=== PATIENT | female | born 1965 | race Caucasian/White ===

== ENCOUNTER 2020-09-19 06:07 | Day surgery (SDC) | payer BC ==
[~2020-09-19] VITALS: Ht 167.6 cm; Wt 114.3 kg
[2020-09-19 07:13] LABS: INR 1.12 (0.85-1.17); PROTIME 13.3 SECONDS (11.6-15.0)
[2020-09-19 07:25] LABS: ANION GAP 14.8 mmol/L (8-16); CALCIUM 9.9 mg/dL (8.5-10.1); CARBON DIOXIDE 29.7 mmol/L (21.0-32.0); CREATININE - SERUM 5.2 mg/dL (0.6-1.3); POTASSIUM - SERUM 3.5 mmol/L (3.5-5.1)
[2020-09-19 07:46] LABS: BASOPHILS 0.4 % (0-2); EOSINOPHILS 4.3 % (0-7); HEMATOCRIT 33.2 % (36.0-48.0); HEMOGLOBIN 10.5 g/dL (12-16); IMMATURE GRANULOCYTES 0.2 % (0-5); LYMPHOCYTE ABS# 1.93 10x3/uL (1.18-3.74); LYMPHOCYTES 21.3 % (15-50); MCH 28.6 pg (26.0-34.0); MCHC 31.6 g/dL (31.0-37.0); MCV 90.5 fL (80.0-100.0); MEAN PLATELET VOLUME 10.3 fL (7.4-10.4); MONOCYTES 6.5 % (2-11); NEUTROPHIL ABS# 6.11 10x3/uL (1.56-6.13); NEUTROPHILS 67.3 % (40-80); PLATELET COUNT 300 10x3/uL (130-400); RBC 3.67 10x6/uL (4.00-5.40); RDW 14.2 % (11.5-14.5); WBC 9.1 10x3/uL (4.8-10.8)
[2020-09-19] MEDS ORDERED: VERAPAMIL HCL40 MG PO (07:56)
[2020-09-19] MEDS ORDERED: PRAVACHOL40 MG PO (07:57)
[2020-09-19] MEDS ORDERED: HCTZ25 MG PO (07:58)
[2020-09-19] MEDS ORDERED: SYNTHROID125 MCG PO (07:58)
[2020-09-19] MEDS ORDERED: LEVEMIR FL100 UNIT/1 SC ×2 (07:59→08:00)
[2020-09-19] MEDS ORDERED: COREG25 MG PO (08:00)
[2020-09-19] MEDS ORDERED: NORVASC10 MG PO (08:01)
[2020-09-19] MEDS ORDERED: LASIX80 MG PO (08:01)
[2020-09-19] MEDS ORDERED: ZYLOPRIM100 MG PO (08:02)
[2020-09-19] MEDS ORDERED: NOVOLOG100 UNIT/1 SC (08:02)
[2020-09-19 08:23] VITALS: Ht 167.6 cm; Wt 114.3 kg
[2020-09-19] MEDS ORDERED: HYDROCODON-ACE1 EAC7 PO (10:51)
--- NOTE | 2020-09-19 12:58 | NUR ---
1255 IV REMOVED. PRESSURE HELD AND INSTRUCTION GIVEN. PT NOT READY TO GO HOME BECAUSE PTS RIDE HAD A LOW BS.
--- NOTE | 2020-09-23 11:01 | OP ---
PATIENT NAME: NAYELI CASON MEDICAL RECORD: [id number] :69 LOCATION:[facility] ADMISSION DATE: SURGEON: MEHRAN FUENTES MD DATE OF OPERATION: 09/19/[address] Erick Piedra PREOPERATIVE DIAGNOSIS: Chronic kidney disease V. POSTOPERATIVE DIAGNOSIS: Chronic kidney disease V. OPERATION PERFORMED: Creation of a left brachial artery to medium basilic vein, Stephanie type AV fistula with plans for return to the operating room in a few weeks for revision to a translocated basilic fistula. SURGEON: Mehran Fuentes MD ANESTHESIA: Regional nerve block and general per AIRBRUSH PAINTER PREOPERATIVE NOTE: Ms. Cason is an obese, pleasant 54-year-old white female patient with chronic kidney disease stage V, who will need dialysis probably within the next few months. She was referred to me for creation of an arteriovenous fistula. Preoperative vein mapping indicated a lack of satisfactory veins in her forearms. She is right handed. On the left, the basilic vein in the upper arm was dominant. She was brought to the operating room at this time with plans to create either a brachiobasilic or brachiocephalic AV fistula in the left arm. DESCRIPTION OF PROCEDURE: Under anesthesia in supine position, the patient was prepped and draped in sterile manner. A Arvin drain was used as a proximal venous tourniquet and nitroglycerin was applied to the intact skin of the arm and forearm. Ultrasound demonstrated a suitably sized basilic vein, which joined to the median cephalic vein just over the distal brachial artery in close proximity to the artery. The cephalic vein just above the antecubital space looked suitable for fistula creation, but just above that it divided into several different branches and these were rather small going proximally and I elected to go ahead with the basilic Stephanie fistula with plans for return to the operating room and delayed second stage revision to a true translocated fistula. I made an incision on the medial aspect of the antecubital space transversely oriented and exposed the basilic vein and the brachial artery. The brachial artery and its bifurcation branches were controlled with Silastic loops. The ulnar brachial vein bled easily. It was eventually necessary to ligate and divide it. The median basilic vein was cleared of surrounding tissues. Distally, it was ligated with 3-0 Vicryl. It was then transected and bevelled. It was flushed with heparinized saline and an atraumatic vascular clamp used on it at the upper limit of the surgical wound. The artery was opened for about 5 mm. It was flushed proximally and distally with heparinized saline and the anastomosis carried out end of vein to side of artery with continuous running 7-0 Prolene. When completed and the occluding surgical loops and clamps were released, excellent flow developed immediately within the new fistula with a strong palpable thrill and pulsation and there was continuous pulsatile Doppler flow within it. There was maintenance of pulsatile high resistance flow in the brachial artery at the wrist. The ulnar artery maintained a pulsatile flow, but it was much diminished with the AV fistula open then when I closed it. The OPERATIVE REPORT [id number] NAYELI CASON palmar arch was intact with good pulsatile flow by Doppler. The wound was then closed with inverted 3-0 Vicryl sutures and the skin was closed with running 4-0 Stratafix and Dermabond glue and dressed with Maxorb, AG, Tegaderm, Cavilon skin prep. The patient was awakened from her anesthetic and taken to the recovery room. Blood loss during the operation was about 5 mL, none was replaced. Sponges, instruments, and needles were accounted for. No drain was used and no surgical specimen submitted for histopathology. The patient will return to see me in my office in approximately 7 days. She is given a prescription for 10 tablets of Dos Rios 5/325. She can take one p.o. q.4 hours p.r.n. pain. She will continue her home medications, diet, and activities. She will wear a sling for the rest of today and this evening while her regional nerve block gradually wears off. She is to remove the sling after tonight and then use her arm as tolerated. TRANSINT:[id number] Voice Confirmation ID: [id number] DOCUMENT ID: [id number] MEHRAN FUENTES MD at 1101 CC: [id number] DICTATION DATE: 09/19/201107 CD MANUFACTURING SUPERVISOR: 09/19/202151 [facility] 09/19/20 [facility] [address] [place] [address]
== END 2020-09-19 13:55 | disposition home or self-care (01) ==
LOC: D.OPS 06:07
PROVIDERS: ATTEND Surgery
DX: N18.5 Chronic kidney disease, stage 5 (principal); I10 Essential (primary) hypertension

== ENCOUNTER 2020-10-10 05:51 | Day surgery (SDC) | payer BC, OTHER ==
[~2020-10-10] VITALS: Ht 167.6 cm; Wt 117.5 kg
[~2020-10-10 05:51] MED LIST: COREG25 MG PO; HCTZ25 MG PO; HYDROCODON-ACE1 EAC7 PO; LASIX80 MG PO; LEVEMIR FL100 UNIT/1 SC; NORVASC10 MG PO; NOVOLOG100 UNIT/1 SC; PRAVACHOL40 MG PO; SYNTHROID125 MCG PO; VERAPAMIL HCL40 MG PO; ZYLOPRIM100 MG PO
[2020-10-10 06:30] LABS: BASOPHILS 0.4 % (0-2); EOSINOPHILS 3.9 % (0-7); HEMATOCRIT 32.3 % (36.0-48.0); HEMOGLOBIN 10.1 g/dL (12-16); IMMATURE GRANULOCYTES 0.1 % (0-5); LYMPHOCYTE ABS# 2.52 10x3/uL (1.18-3.74); LYMPHOCYTES 27.9 % (15-50); MCH 28.8 pg (26.0-34.0); MCHC 31.3 g/dL (31.0-37.0); MEAN PLATELET VOLUME 10.3 fL (7.4-10.4); MONOCYTES 5.8 % (2-11); NEUTROPHIL ABS# 5.58 10x3/uL (1.56-6.13); NEUTROPHILS 61.9 % (40-80); PLATELET COUNT 280 10x3/uL (130-400); RBC 3.51 10x6/uL (4.00-5.40); RDW 14.8 % (11.5-14.5)
[2020-10-10 06:46] LABS: CALCIUM 9.1 mg/dL (8.5-10.1); CARBON DIOXIDE 29.1 mmol/L (21.0-32.0); CREATININE - SERUM 5.3 mg/dL (0.6-1.3); INR 1.13 (0.85-1.17); PROTIME 13.5 SECONDS (11.6-15.0)
[2020-10-10 07:00] LABS: ANION GAP 13.9 mmol/L (8-16)
[2020-10-10 08:13] VITALS: Ht 167.6 cm; Wt 117.5 kg
[2020-10-10 08:37] LABS: HCG URINE NEGATIVE (NEGATIVE)
--- NOTE | 2020-10-10 12:45 | NUR ---
1245 OXYGEN LEVEL DOWN TO 89% AFTER DC OF SFM. BNC 2L/MIN STARTED. O2 SAT 92% AFTER STARTING BNC. ENCOURAGING PT TO TAKE DEEP BREATHS. HOB ELEVATED.
--- NOTE | 2020-10-10 14:29 | NUR ---
1330 IV DC'D. CATHETER TIP INTACT. NO BLEEDING AT SITE. COBAN DRESSING APPLIED. 1345 PT VOICES UNDERSTANDING OF DISCHARGE INSTRUCTIONS THAT WERE REVIEWED WITH HER.
--- NOTE | 2020-10-28 18:26 | OP ---
PATIENT NAME: NAYELI CASON MEDICAL RECORD: [id number] :69 LOCATION:[facility] ADMISSION DATE: SURGEON: MEHRAN FUENTES MD DATE OF OPERATION: 10/10/2020 She was referred by Dr. Piedra. SURGEON: Mehran Fuentes MD. ANESTHESIA: LATIN PROFESSOR, regional nerve block and TIVA. PROCEDURE PERFORMED: Upgradation of a brachial translocated basilic vein AV fistula. OPERATIVE FINDINGS: Fragile fatty tissues and nicely dilated large basilic vein. PREOPERATIVE DIAGNOSIS: End-stage renal disease and dependence on hemodialysis. POSTOPERATIVE DIAGNOSIS: End-stage renal disease and dependence on hemodialysis. PREOPERATIVE NOTE: This 54-year-old female underwent creation of a Stephanie type brachiobasilic AV fistula back on 09/19. She has returned to the operating room now that the basilic vein has dilated. I plan to create a brachial artery to translocate the basilic fistula. DESCRIPTION OF PROCEDURE: Under anesthesia, the patient was placed in supine position, prepped and draped in a sterile manner. I examined her first with ultrasound. I then went ahead with the planned procedure. I made a long incision from axilla to the antecubital space and fully mobilized the basilic vein. The basilic vein was ligated very near the arterial anastomosis in the antecubital space. The vein was then flushed with heparinized saline and treated with topical papaverine and treated with additional heparinized saline solution and then clamped. I exposed the brachial artery above the level of the previous arterial anastomosis and that artery was controlled with Silastic loops and treated with topical papaverine. I then placed the vein graft in a very superficial subcutaneous tunnel in an arching or rainbow type configuration and brought it back down to the artery. The vein was inflated with saline and noted not to be kinked or twisted. The vein was then anastomosed end-to-side to the artery with running 6-0 Prolene. The artery was flushed with heparinized saline as soon as it was opened. With completion of that anastomosis and release of the occluding clamps and loops, tremendous excellent flow developed immediately in the new fistula and suture line was hemostatic. The additional hemostasis was achieved with discrete use of electrocautery and the wound was closed without the use of a drain, closed in layers with interrupted inverted 3-0 Vicryl and running intracuticular 4-0 Stratafix and Dermabond glue. The incision was dressed with Maxorb AG, Tegaderm, and Cavilon skin prep and the patient awakened from the anesthetic and taken to the recovery room. BLOOD LOSS: Estimated at 30 mL. All instruments, sponges, and needles were accounted for and no specimens submitted for histopathology. OPERATIVE REPORT [id number] NAYELI CASON PLAN: The patient is to be discharged to home today and follow up with me in my office in 1 week. I expect that this fistula will be accessible in 4-6 weeks. TRANSINT:[id number] Voice Confirmation ID: [id number] DOCUMENT ID: [id number] MEHRAN FUENTES MD at 1826 CC: [id number] DICTATION DATE: 10/27/20 1605 GIS ANALYST: 10/27/20 2252 [facility] 10/10/20 [facility] [address] [place] [address]
== END 2020-10-10 13:50 | disposition home or self-care (01) ==
LOC: D.OPS 05:51
PROVIDERS: ATTEND Surgery
DX: E11.22 Type 2 diabetes mellitus with diabetic chronic kidney disease (principal); N18.6 End stage renal disease; Z99.2 Dependence on renal dialysis; Z79.4 Long term (current) use of insulin